=== PATIENT | male | born 1980 | race Caucasian/White ===

== ENCOUNTER 2016-08-02 13:23 | Emergency (ER) | payer OTHER ==
[2016-08-02] MEDS ORDERED: IOPAMIDOL 370 (76%) 100 ML VIAL IV ONE (13:24)
[2016-08-02 14:25] LABS: SPECIFIC GRAVITY 1.025 (1.001-1.030); URINE BILIRUBIN NEGATIVE (NEGATIVE); URINE BLOOD NEGATIVE (NEGATIVE); URINE GLUCOSE (UA) NEGATIVE (NEGATIVE); URINE LEUKOCYTE ESTERASE NEGATIVE (NEGATIVE); URINE NITRITE NEGATIVE (NEGATIVE); URINE PROTEIN NEGATIVE (NEGATIVE); URINE UROBILINOGEN NORMAL (0-1 mg/dl)
[2016-08-02 14:27] LABS: URINE APPEARANCE CLEAR; URINE COLOR AMBER
--- NOTE | 2016-08-02 15:28 | CT ---
LUMBAR SPINE CT WITHOUT CONTRAST THORACIC SPINE CT WITHOUT CONTRAST HISTORY: Status post fall with neck pain and back pain. No intravenous contrast administered. Contiguous axial images acquired from the mid C6 to the mid S3 levels. FINDINGS: ALIGNMENT: Grossly unremarkable. DISC SPACES: Mild to moderate disc space narrowing at the T4-5 through T7-8 levels. Mild narrowing at L5-S1. COMPRESSION DEFORMITY: No compression deformity. FRACTURE: No displaced fracture. DISC DEGENERATION: No dominant thoracic spine herniation. Minimal disc bulge at the L2-3 through L4-5 levels. CANAL STENOSIS: No gross canal stenosis or canal compromise. FACET JOINTS: Grossly unremarkable. NEURAL FORAMINA: Minor narrowing at the L4-5 level. PARASPINAL SOFT TISSUES: No gross mass effect. IMPRESSION: No thoracic or lumbar spine fracture identified. Minor features of thoracolumbar disc degeneration. No high-grade canal stenosis. Results were electronically transmitted to the electronic medical record at 08/02/2016 at 1523 hours.
--- NOTE | 2016-08-02 15:32 | CT ---
NECK CTA HISTORY: Neck pain status post fall. Following the administration of 90 mL of [id number] axial images were acquired from the mid orbits to the level of the cl.. Three-dimensional rotational reformatted images were not performed. AORTIC ARCH: Unremarkable. Normal caliber.. INNOMINATE AND SUBCLAVIAN ARTERIES: No high-grade stenosis or occlusion.. VERTEBRAL ARTERIES: No high-grade stenosis or occlusion.. COMMON CAROTID ARTERIES: No high-grade stenosis or occlusion. INTERNAL CAROTID ARTERIES: No high-grade stenosis or occlusion. SOFT TISSUES: Moderate prominence of Waldeyer's ring of the symmetric nature. No gross adenopathy. VISIBLE INTRACRANIAL COMPARTMENT. No mass effect or abnormal enhancement. VISIBLE LUNGS: Grossly unremarkable. OSSEOUS STRUCTURES: No destructive lesions. Minor right frontal and maxillary sinus mucosal thickening. IMPRESSION: No high-grade stenosis or occlusion of the vertebral, common carotid, or internal carotid arteries. Results were electronically transmitted to the electronic medical record at 08/02/2016 at 1527 hours.
== END 2016-08-02 16:12 | disposition home or self-care (01) ==
LOC: ED 13:23
DX: S30.0XXA Contusion of lower back and pelvis, initial encounter (principal); M54.2 Cervicalgia; M54.9 Dorsalgia, unspecified; F17.210 Nicotine dependence, cigarettes, uncomplicated; W17.89XA Other fall from one level to another, initial encounter; Y93.E6 Activity, residential relocation; Y92.812 Truck as the place of occurrence of the external cause
CPT/HCPCS: 81003; 72131; 72128; 70498; 99283 ×2; Q9967